=== PATIENT | male | born 1965 | race African-American/Black ===

== ENCOUNTER 2017-04-03 17:52 | Emergency (ER) | payer MEDICAID ==
[~2017-04-03] VITALS: Ht 177.8 cm; Wt 130.0 kg
[~2017-04-03 17:52] MED LIST: AMLO10TA80 PO; BETASERON SQ; GABA800T97 PO; HYDR-4135 PO; METO100T5 PO; SERT25TA74 PO
[2017-04-03] MEDS ORDERED: ONDANSETRON HCL 4MG/2ML VIAL IV STA (19:36)
[2017-04-03] MEDS ORDERED: SODIUM CHLORIDE 0.9% 1,000 ML IV ONE ×2 (19:36→22:42)
[2017-04-03 19:54] LABS: BASOPHILS % 1.4 % (0.0-2.0); EOSINOPHILS % 3.2 % (0.0-5.0); HEMATOCRIT. 30.4 % (42.0-52.0); HEMOGLOBIN. 10.6 g/dL (14.0-18.0); LYMPHOCYTES % 24.6 % (20.0-50.0); MEAN CORPUSCULAR HEMOGLOBIN 25.5 pg (28.0-32.0); MEAN CORPUSCULAR VOLUME 73.3 fL (80.0-94.0); MEAN PLATELET VOLUME 7.9 fl (7.4-10.4); MONOCYTES % 5.1 % (2.0-8.0); NEUTROPHILS % 65.7 % (40.0-76.0); PLATELET 273 x1000/uL (130-400); RED BLOOD CELL COUNT 4.15 mill/uL (4.7-6.1); RED CELL DISTRIBUTION WIDTH 19.1 % (11.6-14.6)
[2017-04-03 20:02] LABS: PROTHROMBIN TIME 10.3 sec
[2017-04-03 20:10] LABS: CARBON DIOXIDE 17 mEq/L (21-32); CHLORIDE 101 mEq/L (98-107)
[2017-04-03] MEDS ORDERED: MORPHINE SULFATE 4 MG/ML CPJ (NOT FOR IM USE) IV ONE (22:45)
[2017-04-04] MEDS ORDERED: ACETAMINOPHEN 650MG/20.3ML UDC PO ONE (01:15)
[2017-04-04] MEDS ORDERED: SODIUM CHLORIDE 0.9% 1,000 ML IV ONE (01:15)
[2017-04-04] MEDS ORDERED: OXYCODONE HCL 5MG TABLET PO ONE (01:30)
[2017-04-04] MEDS ORDERED: HYDRALAZINE HCL 50MG TABLET PO ONE (05:15)
[2017-04-04 09:06] VITALS: BP 158/62
== END 2017-04-04 09:07 | disposition home or self-care (01) ==
LOC: ER 17:52
DX: G89.29 Other chronic pain (principal); G35 Multiple sclerosis; I25.10 Atherosclerotic heart disease of native coronary artery without angina pectoris; G82.20 Paraplegia, unspecified; I10 Essential (primary) hypertension; E11.9 Type 2 diabetes mellitus without complications; E87.2 Acidosis; N31.2 Flaccid neuropathic bladder, not elsewhere classified; F17.210 Nicotine dependence, cigarettes, uncomplicated; D72.829 Elevated white blood cell count, unspecified; D64.9 Anemia, unspecified; Z98.1 Arthrodesis status; Z88.8 Allergy status to other drugs, medicaments and biological substances; Z93.0 Tracheostomy status; Z95.1 Presence of aortocoronary bypass graft
CPT/HCPCS: 36415; 51702; 71010; 74176; 80053; 83605; 85025; 85610; 96361; 96374; 96375; 99285; J2270; J2405; J7030; 81025; A4315

== ENCOUNTER 2019-03-04 01:46 | Emergency (ER) | payer MEDICAID ==
[~2019-03-04] VITALS: Ht 182.9 cm; Wt 159.1 kg
[~2019-03-04 01:46] MED LIST changes: +METO100T16 PO; -METO100T5 PO
[2019-03-04] MEDS ORDERED: OXYCODONE HCL/ACETAMINOPHEN 5/325MG TABLET PO ONE (03:45)
[2019-03-04 03:46] LABS: BASOPHILS % 1.5 % (0.0-2.0); EOSINOPHILS % 4.7 % (0.0-5.0); HEMATOCRIT. 28.1 % (42.0-52.0); HEMOGLOBIN. 9.4 g/dL (14.0-18.0); LYMPHOCYTES % 17.3 % (20.0-50.0); MEAN CORPUSCULAR HEMOGLOBIN 23.9 pg (28.0-32.0); MEAN CORPUSCULAR VOLUME 71.2 fL (80.0-94.0); MEAN PLATELET VOLUME 7.9 fl (7.4-10.4); MONOCYTES % 8.2 % (2.0-8.0); NEUTROPHILS % 68.3 % (40.0-76.0); PLATELET 348 x1000/uL (130-400); RED BLOOD CELL COUNT 3.95 mill/uL (4.7-6.1); RED CELL DISTRIBUTION WIDTH 17.4 % (11.6-14.6)
[2019-03-04 03:49] LABS: CHLORIDE 99 mEq/L (98-107)
[2019-03-04 04:55] LABS: CLARITY URINE CLEAR (CLEAR); COLOR URINE YELLOW (YELLOW); KETONES URINE NEGATIVE (NEGATIVE); LEUKOCYTE ESTERASE URINE NEGATIVE (NEGATIVE); NITRITE URINE NEGATIVE (NEGATIVE); OCCULT BLOOD URINE NEGATIVE (NEGATIVE); PROTEIN URINE 1+ (NEGATIVE); SPECIFIC GRAVITY URINE 1.005 (1.005-1.030); UROBILINOGEN URINE 0.2 E.U./dL (0.2-1.0)
[2019-03-04 05:24] LABS: *AMPHETAMINES SCREEN URINE NEGATIVE (NEGATIVE); *BARBITURATES SCREEN URINE NEGATIVE (NEGATIVE); *BENZODIAZEPINES SCREEN URINE NEGATIVE (NEGATIVE)
[2019-03-04 05:25] LABS: *COCAINE SCREEN URINE NEGATIVE (NEGATIVE); CANNABINOID URINE SCREEN NEGATIVE (NEGATIVE); METHADONE URINE SCREEN NEGATIVE (NEGATIVE); OPIATES URINE SCREEN PRESUMTIVE POSITIVE (NEGATIVE); PHENCYCLIDINE URINE SCREEN NEGATIVE (NEGATIVE)
[2019-03-04] MEDS ORDERED: METHYLPREDNISOLONE SOD SUCC 125 MG/2 ML VIAL IV ONE (06:00)
[2019-03-04] MEDS ORDERED: MORPHINE SULFATE 4 MG/ML CPJ (NOT FOR IM USE) IV ONE (06:00)
[2019-03-04 07:28] VITALS: BP 140/62
== END 2019-03-04 08:00 | disposition home or self-care (01) ==
LOC: ER 01:46 → EDBEDREQTM 06:43 → EDBEDREQ 06:43 → EDBEDREQSVC 06:43 → CANBEDREQ 06:45 → ER 08:00
DX: G35 Multiple sclerosis (principal); J45.909 Unspecified asthma, uncomplicated; I25.10 Atherosclerotic heart disease of native coronary artery without angina pectoris; E11.9 Type 2 diabetes mellitus without complications; I10 Essential (primary) hypertension; I25.2 Old myocardial infarction; R56.9 Unspecified convulsions; Z88.8 Allergy status to other drugs, medicaments and biological substances; Z93.0 Tracheostomy status; Z86.73 Personal history of transient ischemic attack (TIA), and cerebral infarction without residual deficits
CPT/HCPCS: 36415; 71045; 80053; 80305; 81003; 85025; 87086; 96374; 96375; 99284; J2270; J2930; P9612; Z7610; A4315

== ENCOUNTER 2019-03-06 09:06 | Inpatient (IN) | payer MEDICAID ==
[~2019-03-06] VITALS: Ht 177.8 cm; Wt 130.6 kg
[2019-03-06] MEDS ORDERED: ONDANSETRON HCL 4MG/2ML INJ IV STA (10:12)
[2019-03-06] MEDS ORDERED: MORPHINE SULFATE 4 MG/ML CPJ (NOT FOR IM USE) IV STA (10:12)
[2019-03-06] MEDS ORDERED: ASPIRIN 81MG TABLET PO ONE (10:15)
[2019-03-06] MEDS ORDERED: NITROGLYCERIN OINT 1GM/INCH UDPKT TD ONE (10:15)
[2019-03-06 11:16] LABS: HEMATOCRIT. 28.1 % (42.0-52.0); HEMOGLOBIN. 9.6 g/dL (14.0-18.0); MEAN CORPUSCULAR HEMOGLOBIN 23.9 pg (28.0-32.0); MEAN CORPUSCULAR VOLUME 70.1 fL (80.0-94.0); PLATELET 354 x1000/uL (130-400); RED BLOOD CELL COUNT 4.01 mill/uL (4.7-6.1); RED CELL DISTRIBUTION WIDTH 17.3 % (11.6-14.6)
[2019-03-06 11:24] LABS: CHLORIDE 89 mEq/L (98-107)
[2019-03-06 11:25] LABS: PARTIAL THROMBOPLASTIN TIME 30.3 sec (23.4-31.0); PROTHROMBIN TIME 10.7 sec (9.6-11.0)
[2019-03-06 11:31] LABS: ETHANOL BLOOD < 10 mg/dL
[2019-03-06 11:43] LABS: CLARITY URINE CLEAR (CLEAR); COLOR URINE YELLOW (YELLOW); KETONES URINE NEGATIVE (NEGATIVE); LEUKOCYTE ESTERASE URINE NEGATIVE (NEGATIVE); NITRITE URINE NEGATIVE (NEGATIVE); OCCULT BLOOD URINE NEGATIVE (NEGATIVE); PH URINE 5.5 (4.5-8.0); PROTEIN URINE 1+ (NEGATIVE); SPECIFIC GRAVITY URINE 1.004 (1.005-1.030); UROBILINOGEN URINE 0.2 E.U./dL (0.2-1.0)
[2019-03-06 11:47] LABS: PLATELET ESTIMATE NORMAL
[2019-03-06 12:55] LABS: *AMPHETAMINES SCREEN URINE NEGATIVE (NEGATIVE); *BARBITURATES SCREEN URINE NEGATIVE (NEGATIVE); *BENZODIAZEPINES SCREEN URINE NEGATIVE (NEGATIVE); *COCAINE SCREEN URINE NEGATIVE (NEGATIVE)
[2019-03-06 12:56] LABS: CANNABINOID URINE SCREEN NEGATIVE (NEGATIVE); METHADONE URINE SCREEN NEGATIVE (NEGATIVE); OPIATES URINE SCREEN PRESUMTIVE POSITIVE (NEGATIVE); PHENCYCLIDINE URINE SCREEN NEGATIVE (NEGATIVE)
[2019-03-06] MEDS ORDERED: POTASSIUM CHLORIDE 20MEQ TABLET SR PO ONE (13:15)
[2019-03-06] MEDS ORDERED: SODIUM CHLORIDE 0.9% 1,000 ML IV SCH (14:59)
[2019-03-06] MEDS ORDERED: DIPHENHYDRAMINE 50MG/ML VIAL IV PRN (15:00)
[2019-03-06] MEDS ORDERED: GUAIFENESIN 200MG/10ML SUGAR FREE UDC PO PRN (15:00)
[2019-03-06] MEDS ORDERED: ACETAMINOPHEN 325MG TABLET PO PRN (15:00)
[2019-03-06] MEDS ORDERED: MAGNESIUM/ALUMINUM HYDROXIDE/SIMETHICONE 30ML UDC PO PRN (15:00)
[2019-03-06] MEDS ORDERED: CLONIDINE 0.1MG TABLET PO PRN (15:00)
[2019-03-06] MEDS ORDERED: IPRATROPIUM/ALBUTEROL 0.5-3(2.5)MG/3ML NEB INH PRN (15:00)
[2019-03-06] MEDS ORDERED: ONDANSETRON HCL 4MG/2ML INJ IV PRN (15:00)
[2019-03-06] MEDS ORDERED: LEVOFLOXACIN 500MG PREMIX 100 ML IV NR (15:15)
[2019-03-06] MEDS ORDERED: HYDROMORPHONE HCL/PF 2MG/ML CPJ IV PRN (15:15)
[2019-03-06 16:00] VITALS: BP_SYST 130; BP_SYST 169; BP_DIAS 90
[2019-03-06 17:30] VITALS: BP 130/80
[2019-03-06 20:00] VITALS: BP 120/84
[2019-03-06] MEDS: METOPROLOL TARTRATE 25MG TABLET PO SCH (20:56)
[2019-03-06] MEDS: AMLODIPINE 2.5MG TABLET PO SCH (20:56)
[2019-03-06] MEDS: HYDROMORPHONE HCL/PF 2MG/ML CPJ IV PRN (20:57)
[2019-03-07] VITALS: BP 134/70
[2019-03-07] MEDS: HYDROMORPHONE HCL/PF 2MG/ML CPJ IV PRN ×5 (01:24→21:58)
[2019-03-07] MEDS ORDERED: CLONIDINE 0.1MG TABLET PO PRN (02:00)
[2019-03-07] MEDS ORDERED: LORAZEPAM 0.5MG TABLET PO PRN (02:00)
[2019-03-07] MEDS ORDERED: DIPHENHYDRAMINE 50MG/ML VIAL IV PRN (02:00)
[2019-03-07] MEDS ORDERED: MAGNESIUM/ALUMINUM HYDROXIDE/SIMETHICONE 30ML UDC PO PRN (02:00)
[2019-03-07] MEDS ORDERED: ACETAMINOPHEN 325MG TABLET PO PRN (02:00)
[2019-03-07] MEDS ORDERED: GUAIFENESIN 200MG/10ML SUGAR FREE UDC PO PRN (02:00)
[2019-03-07] MEDS ORDERED: IPRATROPIUM/ALBUTEROL 0.5-3(2.5)MG/3ML NEB INH PRN (02:00)
[2019-03-07 04:00] VITALS: BP 137/81
[2019-03-07 06:38] LABS: CHLORIDE 100 mEq/L (98-107)
[2019-03-07 06:45] LABS: BASOPHILS % 0.4 % (0.0-2.0); EOSINOPHILS % 0.2 % (0.0-5.0); LYMPHOCYTES % 18.1 % (20.0-50.0); MEAN CORPUSCULAR HEMOGLOBIN 23.8 pg (28.0-32.0); MEAN CORPUSCULAR VOLUME 71.2 fL (80.0-94.0); MEAN PLATELET VOLUME 7.5 fl (7.4-10.4); MONOCYTES % 10.4 % (2.0-8.0); NEUTROPHILS % 70.9 % (40.0-76.0); PLATELET 289 x1000/uL (130-400); RED BLOOD CELL COUNT 3.37 mill/uL (4.7-6.1); RED CELL DISTRIBUTION WIDTH 17.5 % (11.6-14.6)
[2019-03-07 06:47] LABS: CREATINE KINASE MB FRACTION 3.9 ng/mL (0.5-3.6)
[2019-03-07 06:48] LABS: PHOSPHORUS 4.4 mg/dL (2.5-4.9)
[2019-03-07] MEDS: SODIUM CHLORIDE 0.9% INJ 3ML FLUSH IVF SCH ×3 (06:48→22:00)
[2019-03-07] MEDS: GABAPENTIN 400MG CAPSULE PO SCH ×3 (06:48→21:58)
[2019-03-07 06:49] LABS: LDL CHOLESTEROL 49 mg/dL (5-100)
[2019-03-07 06:50] LABS: CREATINE KINASE 382 IU/L (39-308)
[2019-03-07 06:51] LABS: HDL CHOLESTEROL 55 mg/dL (40-59)
[2019-03-07 08:00] VITALS: BP 140/77
[2019-03-07] MEDS ORDERED: LEVOFLOXACIN 500MG PREMIX 100 ML IV SCH (08:00)
[2019-03-07] MEDS: CLOPIDOGREL 75MG TABLET PO SCH (10:00)
[2019-03-07] MEDS: ASPIRIN 81MG EC TABLET PO SCH (10:00)
[2019-03-07] MEDS: ENOXAPARIN 40MG/0.4ML SYR SUBCUT SCH (10:01)
[2019-03-07] MEDS: AMLODIPINE 2.5MG TABLET PO SCH ×2 (10:01→21:58)
[2019-03-07] MEDS: METOPROLOL TARTRATE 25MG TABLET PO SCH ×2 (10:03→21:58)
[2019-03-07 12:00] VITALS: BP 137/68
[2019-03-07] MEDS ORDERED: POTASSIUM CHLORIDE 20MEQ TABLET SR PO NR (13:30)
[2019-03-07 14:37] LABS: TOTAL IRON BINDING CAPACITY 254 ug/dL (250-450)
[2019-03-07 16:00] VITALS: BP 119/71
[2019-03-07] MEDS ORDERED: LEVOFLOXACIN 250MG PREMIX 50 ML IV SCH (16:00)
[2019-03-07] MEDS: SODIUM CHLORIDE 0.9% 1,000 ML IV SCH (16:04)
[2019-03-07 20:00] VITALS: BP 129/72
[2019-03-07] MEDS ORDERED: EPOETIN ALFA 10000UNITS/ML VIAL SUBCUT NR (21:00)
[2019-03-08] VITALS: BP 121/68
[2019-03-08] MEDS: HYDROMORPHONE HCL/PF 2MG/ML CPJ IV PRN ×3 (02:50→12:53)
[2019-03-08] MEDS: SODIUM CHLORIDE 0.9% 1,000 ML IV SCH (03:20)
[2019-03-08 04:00] VITALS: BP 136/79
[2019-03-08] MEDS: SODIUM CHLORIDE 0.9% INJ 3ML FLUSH IVF SCH (06:07)
[2019-03-08] MEDS: GABAPENTIN 400MG CAPSULE PO SCH (06:07)
[2019-03-08 06:08] LABS: BASOPHILS % 0.9 % (0.0-2.0); EOSINOPHILS % 1.2 % (0.0-5.0); HEMATOCRIT. 25.4 % (42.0-52.0); HEMOGLOBIN. 8.4 g/dL (14.0-18.0); LYMPHOCYTES % 19.7 % (20.0-50.0); MEAN PLATELET VOLUME 7.8 fl (7.4-10.4); NEUTROPHILS % 68.2 % (40.0-76.0); PLATELET 306 x1000/uL (130-400); RED BLOOD CELL COUNT 3.52 mill/uL (4.7-6.1); RED CELL DISTRIBUTION WIDTH 17.6 % (11.6-14.6)
[2019-03-08 06:34] LABS: CHLORIDE 106 mEq/L (98-107)
[2019-03-08 06:41] LABS: PHOSPHORUS 3.5 mg/dL (2.5-4.9)
[2019-03-08 08:00] VITALS: BP 144/87
[2019-03-08] MEDS: METOPROLOL TARTRATE 25MG TABLET PO SCH (08:35)
[2019-03-08] MEDS: ENOXAPARIN 40MG/0.4ML SYR SUBCUT SCH (08:35)
[2019-03-08] MEDS: AMLODIPINE 2.5MG TABLET PO SCH (08:35)
[2019-03-08] MEDS: CLOPIDOGREL 75MG TABLET PO SCH (08:35)
[2019-03-08] MEDS: ASPIRIN 81MG EC TABLET PO SCH (08:54)
[2019-03-08] MEDS ORDERED: POTASSIUM CHLORIDE 20MEQ TABLET SR PO NR ×2 (09:15→10:45)
[2019-03-08 12:00] VITALS: BP 134/79
[2019-03-08 15:45] VITALS: BP 135/87
[2019-03-08 16:10] VITALS: BP 155/83
== END 2019-03-08 16:30 | disposition home or self-care (01) | DRG 198 ==
LOC: ER 09:06 → 8WST 14:12 → EDBEDREQ 14:29 → ENRESERV 16:11
PROVIDERS: ADMIT Internal Medicine; ATTEND Internal Medicine
DX: R07.89 Other chest pain (principal); I25.10 Atherosclerotic heart disease of native coronary artery without angina pectoris; E11.22 Type 2 diabetes mellitus with diabetic chronic kidney disease; E11.40 Type 2 diabetes mellitus with diabetic neuropathy, unspecified; E44.0 Moderate protein-calorie malnutrition; N18.4 Chronic kidney disease, stage 4 (severe); G35 Multiple sclerosis; I25.2 Old myocardial infarction; E11.621 Type 2 diabetes mellitus with foot ulcer; D64.9 Anemia, unspecified; D72.829 Elevated white blood cell count, unspecified; E66.01 Morbid (severe) obesity due to excess calories; E78.5 Hyperlipidemia, unspecified; E83.42 Hypomagnesemia; E87.1 Hypo-osmolality and hyponatremia; E87.6 Hypokalemia; G40.909 Epilepsy, unspecified, not intractable, without status epilepticus; L97.529 Non-pressure chronic ulcer of other part of left foot with unspecified severity; M21.371 Foot drop, right foot; F19.10 Other psychoactive substance abuse, uncomplicated; F17.210 Nicotine dependence, cigarettes, uncomplicated; I12.9 Hypertensive chronic kidney disease with stage 1 through stage 4 chronic kidney disease, or unspecified chronic kidney disease; F32.9 Major depressive disorder, single episode, unspecified; F41.9 Anxiety disorder, unspecified; J45.909 Unspecified asthma, uncomplicated; Z68.41 Body mass index [BMI] 40.0-44.9, adult; I69.354 Hemiplegia and hemiparesis following cerebral infarction affecting left non-dominant side; Z82.49 Family history of ischemic heart disease and other diseases of the circulatory system; Z83.3 Family history of diabetes mellitus; Z95.1 Presence of aortocoronary bypass graft; Z95.5 Presence of coronary angioplasty implant and graft; Z99.3 Dependence on wheelchair
CPT/HCPCS: 36415; 71045; 76770; 80061; 80305; 80320; 82550; 82553; 83540; 83550; 83735; 83880; 84100; 84134; 84443; 84484; 85379; 93005; 93306; 93970; 96374; 96375; 97161; 99291; J0885; J1170; J1650; J1956; J2270; J2405; J7030; G0480

== ENCOUNTER 2020-04-17 16:43 | Inpatient (IN) | payer MEDICAID ==
[~2020-04-17] VITALS: Ht 182.9 cm; Wt 111.2 kg
[2020-04-17] MEDS ORDERED: ASPIRIN 81MG TABLET PO ONE (17:45)
[2020-04-17 17:46] LABS: EOSINOPHILS % 3.6 % (0.0-5.0); HEMATOCRIT. 28.6 % (42.0-52.0); HEMOGLOBIN. 9.6 g/dL (14.0-18.0); LYMPHOCYTES % 12.1 % (20.0-50.0); MEAN CORPUSCULAR VOLUME 71.7 fL (80.0-94.0); MEAN PLATELET VOLUME 8.1 fl (7.4-10.4); MONOCYTES % 6.5 % (2.0-8.0); NEUTROPHILS % 76.8 % (40.0-76.0); PLATELET 335 x1000/uL (130-400); RED CELL DISTRIBUTION WIDTH 18.1 % (11.6-14.6)
[2020-04-17] MEDS ORDERED: ONDANSETRON HCL 4MG/2ML INJ IV STA (17:46)
[2020-04-17] MEDS ORDERED: MORPHINE SULFATE 4 MG/ML CPJ (NOT FOR IM USE) IV STA (17:46)
[2020-04-17] MEDS ORDERED: SODIUM CHLORIDE 0.9% 1,000 ML IV ONE (17:46)
[2020-04-17 17:51] LABS: CHLORIDE 110 mEq/L (98-107)
[2020-04-17 18:06] LABS: PARTIAL THROMBOPLASTIN TIME 25.5 sec (23.4-31.0); PROTHROMBIN TIME 10.9 sec (9.6-11.0)
[2020-04-17 18:24] LABS: CLARITY URINE CLEAR (CLEAR); COLOR URINE YELLOW (YELLOW); KETONES URINE NEGATIVE (NEGATIVE); LEUKOCYTE ESTERASE URINE 2+ (NEGATIVE); NITRITE URINE NEGATIVE (NEGATIVE); OCCULT BLOOD URINE NEGATIVE (NEGATIVE); PROTEIN URINE 2+ (NEGATIVE); SPECIFIC GRAVITY URINE 1.013 (1.005-1.030); UROBILINOGEN URINE 0.2 E.U./dL (0.2-1.0)
[2020-04-17] MEDS ORDERED: FUROSEMIDE 40MG/4ML VIAL IVP ONE (19:45)
[2020-04-17] MEDS ORDERED: CEFTRIAXONE 1 G PREMIX 50 ML IV ONE (19:45)
[2020-04-17] MEDS ORDERED: AZITHROMYCIN 500 MG in DEXT 5% WATER 250 ML IV ONE (19:45)
[2020-04-17] MEDS ORDERED: ONDANSETRON HCL 4MG/2ML INJ IV PRN (21:30)
[2020-04-17] MEDS ORDERED: IPRATROPIUM/ALBUTEROL 0.5-3(2.5)MG/3ML NEB NEB PRN (21:30)
[2020-04-17] MEDS ORDERED: DOCUSATE SODIUM 100MG CAPSULE PO PRN (21:30)
[2020-04-17] MEDS ORDERED: DEXTROSE 50% WATER 50ML SYRINGE IV PRN (21:30)
[2020-04-17] MEDS ORDERED: ACETAMINOPHEN 325MG TABLET PO PRN ×2 (21:30)
[2020-04-17] MEDS ORDERED: NITROGLYCERIN 0.4MG TABLET SL SL PRN (21:30)
[2020-04-17] MEDS ORDERED: MAGNESIUM/ALUMINUM HYDROXIDE/SIMETHICONE 30ML UDC PO PRN (21:30)
[2020-04-17] MEDS ORDERED: GUAIFENESIN 200MG/10ML SUGAR FREE UDC PO PRN (21:30)
[2020-04-17] MEDS ORDERED: ENOXAPARIN 30MG/0.3ML SYR SUBCUT SCH (21:45)
[2020-04-17] MEDS: GUAIFENESIN/DM 600MG/30MG ER TAB 12HR PO SCH (22:00)
[2020-04-17 22:11] LABS: TOTAL IRON BINDING CAPACITY 207 ug/dL (250-450)
[2020-04-17 22:33] LABS: FOLIC ACID (FOLATE) SERUM >20 ng/mL ng/mL (>5.38)
[2020-04-17 22:43] LABS: VITAMIN B12 SERUM 453 pg/mL (211-911)
[2020-04-17] MEDS ORDERED: POTASSIUM CHLORIDE 20MEQ TABLET SR PO NR (23:00)
[2020-04-18] VITALS (7 sets, daily range): BP systolic 96–166; BP diastolic 66–97
[2020-04-18 00:23] LABS: CREATINE KINASE MB FRACTION 1.4 ng/mL (0.5-3.6)
[2020-04-18] MEDS: ZOLPIDEM TARTRATE 5MG TABLET PO PRN ×2 (02:58→22:01)
[2020-04-18] MEDS: INSULIN LISPRO 100 UNITS/ML SUBCUT SCH ×4 (07:38→21:00)
[2020-04-18] MEDS: BLOOD SUGAR DIAGNOSTIC STRIP TEST SCH ×4 (07:40→21:20)
[2020-04-18] MEDS ORDERED: CEFTRIAXONE 1 G PREMIX 50 ML IV SCH (09:00)
[2020-04-18 09:25] LABS: *AMPHETAMINES SCREEN URINE NEGATIVE (NEGATIVE); *BARBITURATES SCREEN URINE NEGATIVE (NEGATIVE); *BENZODIAZEPINES SCREEN URINE NEGATIVE (NEGATIVE); *COCAINE SCREEN URINE NEGATIVE (NEGATIVE); METHADONE URINE SCREEN NEGATIVE (NEGATIVE); OPIATES URINE SCREEN NEGATIVE (NEGATIVE)
[2020-04-18 09:26] LABS: CANNABINOID URINE SCREEN NEGATIVE (NEGATIVE); PHENCYCLIDINE URINE SCREEN NEGATIVE (NEGATIVE)
[2020-04-18] MEDS: FAMOTIDINE 20MG TABLET PO SCH (09:54)
[2020-04-18] MEDS: ASCORBIC ACID 500 MG TABLET PO SCH ×2 (09:54→21:19)
[2020-04-18] MEDS: ZINC SULFATE 220 MG ( 50 ) CAPSULE PO SCH (09:54)
[2020-04-18] MEDS: GUAIFENESIN/DM 600MG/30MG ER TAB 12HR PO SCH ×2 (09:54→21:19)
[2020-04-18] MEDS: ASPIRIN 325MG EC TABLET PO SCH (09:54)
[2020-04-18] MEDS ORDERED: CEFTRIAXONE 1,000 MG in DEXTROSE 5% WATER 50 ML IV SCH (20:00)
[2020-04-18] MEDS ORDERED: AZITHROMYCIN 500 MG in DEXT 5% WATER 250 ML IV SCH (21:00)
[2020-04-18] MEDS ORDERED: ENOXAPARIN 30MG/0.3ML SYR SUBCUT SCH (21:00)
[2020-04-18] MEDS: CEFTRIAXONE 1,000 MG in DEXTROSE 5% WATER 50 ML IV SCH (21:45)
[2020-04-18] MEDS: TRAMADOL 50MG TABLET PO PRN (22:01)
[2020-04-18] MEDS: AZITHROMYCIN 500 MG in DEXT 5% WATER 250 ML IV SCH (22:16)
[2020-04-19 00:13] VITALS: BP 154/86
[2020-04-19 04:00] VITALS: BP 178/86
[2020-04-19] MEDS: TRAMADOL 50MG TABLET PO PRN ×2 (04:34→17:02)
[2020-04-19] MEDS: CLONIDINE 0.1MG TABLET PO PRN ×2 (04:59→20:54)
[2020-04-19] MEDS: BLOOD SUGAR DIAGNOSTIC STRIP TEST SCH ×4 (06:49→20:37)
[2020-04-19] MEDS: INSULIN LISPRO 100 UNITS/ML SUBCUT SCH ×4 (06:50→20:37)
[2020-04-19] MEDS: ZINC SULFATE 220 MG ( 50 ) CAPSULE PO SCH (08:57)
[2020-04-19] MEDS: ASPIRIN 325MG EC TABLET PO SCH (08:57)
[2020-04-19] MEDS: FAMOTIDINE 20MG TABLET PO SCH (08:57)
[2020-04-19] MEDS: GUAIFENESIN/DM 600MG/30MG ER TAB 12HR PO SCH ×2 (08:57→20:54)
[2020-04-19] MEDS: ASCORBIC ACID 500 MG TABLET PO SCH ×2 (08:57→20:54)
[2020-04-19 11:10] VITALS: BP 146/85
[2020-04-19 13:00] VITALS: BP 158/89
[2020-04-19 16:22] VITALS: BP 160/93
[2020-04-19] MEDS: BACITRACIN 15GM TUBE TOP SCH (19:07)
[2020-04-19 20:00] VITALS: BP 188/98
[2020-04-19] MEDS: CEFTRIAXONE 1,000 MG in DEXTROSE 5% WATER 50 ML IV SCH (20:13)
[2020-04-19] MEDS: ZOLPIDEM TARTRATE 5MG TABLET PO PRN (20:54)
[2020-04-19] MEDS: ENOXAPARIN 40MG/0.4ML SYR SUBCUT SCH (20:55)
[2020-04-19] MEDS: AZITHROMYCIN 500 MG in DEXT 5% WATER 250 ML IV SCH (20:56)
[2020-04-20] VITALS: BP 172/99
[2020-04-20 04:00] VITALS: BP 170/96
[2020-04-20] MEDS: CLONIDINE 0.1MG TABLET PO PRN ×3 (04:27→21:05)
[2020-04-20] MEDS: BLOOD SUGAR DIAGNOSTIC STRIP TEST SCH ×4 (06:25→21:06)
[2020-04-20] MEDS: INSULIN LISPRO 100 UNITS/ML SUBCUT SCH ×4 (06:56→21:00)
[2020-04-20 08:00] VITALS: BP 178/83
[2020-04-20] MEDS: GUAIFENESIN/DM 600MG/30MG ER TAB 12HR PO SCH ×2 (09:00→21:05)
[2020-04-20] MEDS: ZINC SULFATE 220 MG ( 50 ) CAPSULE PO SCH (09:00)
[2020-04-20] MEDS: FAMOTIDINE 20MG TABLET PO SCH (09:00)
[2020-04-20] MEDS ORDERED: MEROPENEM 1,000 MG in SODIUM CHLORIDE 0.9% 100 ML IV SCH (09:15)
[2020-04-20] MEDS: ASCORBIC ACID 500 MG TABLET PO SCH ×2 (09:50→21:05)
[2020-04-20] MEDS: ASPIRIN 325MG EC TABLET PO SCH (09:50)
[2020-04-20] MEDS: BACITRACIN 15GM TUBE TOP SCH (10:05)
[2020-04-20] MEDS: TRAMADOL 50MG TABLET PO PRN ×4 (10:25→18:01)
[2020-04-20 12:00] VITALS: BP 179/94
[2020-04-20] MEDS: MEROPENEM 1000MG in NORMAL SALINE 100ML IV SCH ×2 (12:18→21:05)
[2020-04-20 16:00] VITALS: BP 167/91
[2020-04-20 20:22] VITALS: BP 173/89
[2020-04-20] MEDS: AZITHROMYCIN 500 MG in DEXT 5% WATER 250 ML IV SCH (21:05)
[2020-04-20] MEDS: ENOXAPARIN 40MG/0.4ML SYR SUBCUT SCH (21:06)
[2020-04-21] VITALS (8 sets, daily range): BP systolic 168–200; BP diastolic 84–99
[2020-04-21] MEDS: TRAMADOL 50MG TABLET PO PRN ×2 (02:55→18:18)
[2020-04-21 05:47] LABS: CHLORIDE 107 mEq/L (98-107)
[2020-04-21 05:56] LABS: PHOSPHORUS 3.3 mg/dL (2.5-4.9)
[2020-04-21 06:17] LABS: BASOPHILS % 0.7 % (0.0-2.0); EOSINOPHILS % 5.5 % (0.0-5.0); HEMATOCRIT. 29.1 % (42.0-52.0); HEMOGLOBIN. 9.8 g/dL (14.0-18.0); LYMPHOCYTES % 20.1 % (20.0-50.0); MEAN CORPUSCULAR HEMOGLOBIN 24.2 pg (28.0-32.0); MEAN CORPUSCULAR VOLUME 71.7 fL (80.0-94.0); MEAN PLATELET VOLUME 8.2 fl (7.4-10.4); MONOCYTES % 6.4 % (2.0-8.0); NEUTROPHILS % 67.3 % (40.0-76.0); PLATELET 298 x1000/uL (130-400); RED BLOOD CELL COUNT 4.06 mill/uL (4.7-6.1); RED CELL DISTRIBUTION WIDTH 18.2 % (11.6-14.6)
[2020-04-21] MEDS: BLOOD SUGAR DIAGNOSTIC STRIP TEST SCH ×4 (07:26→21:48)
[2020-04-21] MEDS: INSULIN LISPRO 100 UNITS/ML SUBCUT SCH ×4 (07:50→21:00)
[2020-04-21] MEDS: ASPIRIN 325MG EC TABLET PO SCH (08:54)
[2020-04-21] MEDS: CLONIDINE 0.1MG TABLET PO PRN (08:54)
[2020-04-21] MEDS: ZINC SULFATE 220 MG ( 50 ) CAPSULE PO SCH (08:54)
[2020-04-21] MEDS: FAMOTIDINE 20MG TABLET PO SCH (08:54)
[2020-04-21] MEDS: ASCORBIC ACID 500 MG TABLET PO SCH ×2 (08:54→21:47)
[2020-04-21] MEDS: BACITRACIN 15GM TUBE TOP SCH (09:00)
[2020-04-21] MEDS: MEROPENEM 1000MG in NORMAL SALINE 100ML IV SCH (11:44)
[2020-04-21] MEDS: GUAIFENESIN/DM 600MG/30MG ER TAB 12HR PO SCH ×2 (11:44→21:47)
[2020-04-21] MEDS: HYDRALAZINE HCL 50MG TABLET PO SCH ×2 (13:28→21:47)
[2020-04-21] MEDS: AMLODIPINE 10MG TABLET PO SCH (13:28)
[2020-04-21] MEDS: CEFTAZIDIME PENTAHYDRATE 1 G in DEXTROSE 5% WATER 50 ML IV SCH (18:01)
[2020-04-21] MEDS: ENOXAPARIN 40MG/0.4ML SYR SUBCUT SCH (21:48)
[2020-04-22 00:22] VITALS: BP 163/84
[2020-04-22] MEDS: ZOLPIDEM TARTRATE 5MG TABLET PO PRN (01:28)
[2020-04-22] MEDS: TRAMADOL 50MG TABLET PO PRN ×2 (01:28→10:52)
[2020-04-22 04:37] VITALS: BP 174/97
[2020-04-22] MEDS: HYDRALAZINE HCL 50MG TABLET PO SCH ×3 (06:13→21:32)
[2020-04-22] MEDS: BLOOD SUGAR DIAGNOSTIC STRIP TEST SCH ×4 (06:25→21:35)
[2020-04-22] MEDS: CEFTAZIDIME PENTAHYDRATE 1 G in DEXTROSE 5% WATER 50 ML IV SCH ×2 (06:32→17:11)
[2020-04-22] MEDS: INSULIN LISPRO 100 UNITS/ML SUBCUT SCH ×4 (07:47→21:00)
[2020-04-22 08:03] VITALS: BP 161/92
[2020-04-22] MEDS: ASCORBIC ACID 500 MG TABLET PO SCH ×2 (08:50→21:32)
[2020-04-22] MEDS: AMLODIPINE 10MG TABLET PO SCH (08:50)
[2020-04-22] MEDS: GUAIFENESIN/DM 600MG/30MG ER TAB 12HR PO SCH ×2 (08:50→21:32)
[2020-04-22] MEDS: ZINC SULFATE 220 MG ( 50 ) CAPSULE PO SCH (08:50)
[2020-04-22] MEDS: ASPIRIN 325MG EC TABLET PO SCH (08:50)
[2020-04-22] MEDS: BACITRACIN 15GM TUBE TOP SCH (08:51)
[2020-04-22] MEDS: FAMOTIDINE 20MG TABLET PO SCH (08:51)
[2020-04-22 12:03] VITALS: BP 153/65
[2020-04-22] MEDS ORDERED: POTASSIUM CHLORIDE 20MEQ TABLET SR PO NR (14:00)
[2020-04-22 16:10] VITALS: BP 152/83
[2020-04-22 20:02] VITALS: BP 162/86
[2020-04-22] MEDS: ENOXAPARIN 40MG/0.4ML SYR SUBCUT SCH (21:35)
[2020-04-22] MEDS ORDERED: TRAMADOL 50MG TABLET PO PRN ×2 (21:45→22:45)
[2020-04-23 00:24] VITALS: BP 166/90
[2020-04-23 04:00] VITALS: BP 166/96
[2020-04-23] MEDS: HYDRALAZINE HCL 50MG TABLET PO SCH (06:01)
[2020-04-23] MEDS: CEFTAZIDIME PENTAHYDRATE 1 G in DEXTROSE 5% WATER 50 ML IV SCH (06:01)
[2020-04-23] MEDS: INSULIN LISPRO 100 UNITS/ML SUBCUT SCH (07:11)
[2020-04-23] MEDS: BLOOD SUGAR DIAGNOSTIC STRIP TEST SCH (07:11)
[2020-04-23 08:17] VITALS: BP 159/91
[2020-04-23] MEDS: ASPIRIN 325MG EC TABLET PO SCH (08:39)
[2020-04-23] MEDS ORDERED: LIDOCAINE HCL 1% 20ML VIAL (Pyxis) INJ ONE (09:36)
[2020-04-23] MEDS: GUAIFENESIN/DM 600MG/30MG ER TAB 12HR PO SCH (09:47)
[2020-04-23] MEDS: ZINC SULFATE 220 MG ( 50 ) CAPSULE PO SCH (09:48)
[2020-04-23] MEDS: ASCORBIC ACID 500 MG TABLET PO SCH (09:48)
[2020-04-23] MEDS: AMLODIPINE 10MG TABLET PO SCH (09:48)
[2020-04-23] MEDS: BACITRACIN 15GM TUBE TOP SCH (09:48)
[2020-04-23] MEDS: FAMOTIDINE 20MG TABLET PO SCH (09:48)
[2020-04-23 11:54] VITALS: BP 159/91
[2020-04-23 12:12] VITALS: BP 162/91
[2020-04-23 12:20] VITALS: BP 157/94
== END 2020-04-23 12:45 | disposition home health service (06) | DRG 720 ==
LOC: ER 16:43 → MICUSO 20:14 → 7WST 22:59 → 6WST 04-18 21:37
PROVIDERS: ADMIT Internal Medicine; ATTEND Internal Medicine
PROC: 02HV33Z Insertion of Infusion Device into Superior Vena Cava, Percutaneous Approach (ICD-10-PCS; principal; 2020-04-23)
PROC: B518ZZA Fluoroscopy of Superior Vena Cava, Guidance (ICD-10-PCS; 2020-04-23)
DX: A41.59 Other Gram-negative sepsis (principal); J96.00 Acute respiratory failure, unspecified whether with hypoxia or hypercapnia; E11.22 Type 2 diabetes mellitus with diabetic chronic kidney disease; E11.40 Type 2 diabetes mellitus with diabetic neuropathy, unspecified; E44.1 Mild protein-calorie malnutrition; G35 Multiple sclerosis; G40.909 Epilepsy, unspecified, not intractable, without status epilepticus; Z20.828 Contact with and (suspected) exposure to other viral communicable diseases; N18.9 Chronic kidney disease, unspecified; K80.20 Calculus of gallbladder without cholecystitis without obstruction; N39.0 Urinary tract infection, site not specified; J45.909 Unspecified asthma, uncomplicated; I25.10 Atherosclerotic heart disease of native coronary artery without angina pectoris; E83.51 Hypocalcemia; E87.6 Hypokalemia; F41.9 Anxiety disorder, unspecified; N17.0 Acute kidney failure with tubular necrosis; F17.210 Nicotine dependence, cigarettes, uncomplicated; I12.9 Hypertensive chronic kidney disease with stage 1 through stage 4 chronic kidney disease, or unspecified chronic kidney disease; J18.9 Pneumonia, unspecified organism; D63.8 Anemia in other chronic diseases classified elsewhere; D72.810 Lymphocytopenia; Z86.73 Personal history of transient ischemic attack (TIA), and cerebral infarction without residual deficits; Z88.8 Allergy status to other drugs, medicaments and biological substances; Z79.899 Other long term (current) drug therapy; Z68.33 Body mass index [BMI] 33.0-33.9, adult; Z95.5 Presence of coronary angioplasty implant and graft; Z95.1 Presence of aortocoronary bypass graft; Z93.0 Tracheostomy status; Z87.440 Personal history of urinary (tract) infections; Z82.49 Family history of ischemic heart disease and other diseases of the circulatory system
CPT/HCPCS: 36415; 36573; 71045; 74176; 76770; 76937; 80048; 80053; 80305; 81003; 82550; 82553; 82607; 82746; 82962; 83036; 83540; 83550; 83605; 83735; 83880; 84100; 84153; 84484; 85025; 87077; 87186; 87635; 93005; 93970; 99291; C1725; J0456; J0696; J0713; J1650; J1940; J2185; J2270; J2405; J3490; J7030; J7060; G0103

== ENCOUNTER 2020-05-03 10:53 | Emergency (ER) | payer MEDICAID ==
[~2020-05-03] VITALS: Ht 177.8 cm; Wt 113.0 kg
[2020-05-03 10:58] VITALS: BP 182/112
== END 2020-05-03 12:30 | disposition left against medical advice (07) ==
LOC: ER 10:53
DX: Z53.21 Procedure and treatment not carried out due to patient leaving prior to being seen by health care provider (principal)

== ENCOUNTER 2020-08-30 10:22 | Emergency (ER) | payer MEDICAID ==
[~2020-08-30] VITALS: Ht 188 cm; Wt 128.0 kg
[2020-08-30 11:23] LABS: BASOPHILS % 1.1 % (0.0-2.0); EOSINOPHILS % 3.4 % (0.0-5.0); HEMATOCRIT. 29.7 % (42.0-52.0); HEMOGLOBIN. 9.8 g/dL (14.0-18.0); LYMPHOCYTES % 16.2 % (20.0-50.0); MEAN CORPUSCULAR HEMOGLOBIN 24.3 pg (28.0-32.0); MEAN CORPUSCULAR VOLUME 73.7 fL (80.0-94.0); NEUTROPHILS % 73.3 % (40.0-76.0); PLATELET 311 x1000/uL (130-400); RED BLOOD CELL COUNT 4.03 mill/uL (4.7-6.1); RED CELL DISTRIBUTION WIDTH 18.3 % (11.6-14.6)
[2020-08-30 11:25] LABS: CHLORIDE 113 mEq/L (98-107)
[2020-08-30 11:49] LABS: BG BASE EXCESS -2.7 mmol/L (-2.0-2.0); BG CARBOXYHEMOGLOBIN 5.7 % (0.5-1.5); BG DEOXYHEMOGLOBIN 5.8 % (0.0-5.0); BG HCO3 ACT 21.8 mmol/L (22.0-26.0); BG OXYGEN SATURATION 93.8 % (92.0-98.5); BG OXYHEMOGLOBIN 88.5 % (94.0-97.0); BG PCO2 36.9 mmHg (35.0-45.0); BG PO2 69.3 mmHg (75.0-100.0); BG SAMPLE SITE RIGHT RADIAL; BG TOTAL HEMOGLOBIN 10.9 g/dL (12.0-18.0); BG VENT MODE ROOM AIR
[2020-08-30 15:49] VITALS: BP 149/62
== END 2020-08-30 15:59 | disposition home or self-care (01) ==
LOC: ER 10:56
DX: R53.1 Weakness (principal); J45.909 Unspecified asthma, uncomplicated; E11.9 Type 2 diabetes mellitus without complications; I10 Essential (primary) hypertension; E78.00 Pure hypercholesterolemia, unspecified; Z79.899 Other long term (current) drug therapy; Z88.8 Allergy status to other drugs, medicaments and biological substances; Z86.73 Personal history of transient ischemic attack (TIA), and cerebral infarction without residual deficits
CPT/HCPCS: 36415; 36600; 71045; 80053; 82375; 82805; 83880; 84484; 85025; 93005; 99285